=== PATIENT | male | born 1995 | race Caucasian/White ===

== ENCOUNTER 2022-06-18 15:54 | Emergency (ER) | payer OTHER ==
[2022-06-18 16:42] VITALS: BP 117/71; PULSE 82; RESP 20; TEMP 98; BMI 22.5
[2022-06-18] MEDS ORDERED: ACETAMINOPHEN 325 MG TABLET (FP) PO ONE (18:52)
[2022-06-18] MEDS ORDERED: ACETAMINOPHEN 325 MG TABLET (FP) ONE (19:44)
[2022-06-18] MEDS ORDERED: DIPHTH,PERTUSS(ACELL),TET 0.5 ML DISP.SYRIN IM ONE ×2 (19:59→21:01)
[2022-06-18] MEDS ORDERED: IBUPROFEN 400 MG TABLET (FP) PO ONE ×2 (22:08→22:23)
== END 2022-06-18 22:30 | disposition home or self-care (01) ==
LOC: JER 15:54
PROC: 3E0234Z Introduction of Serum, Toxoid and Vaccine into Muscle, Percutaneous Approach (ICD-10-PCS; principal; 2022-06-18)
DX: S06.0X1A Concussion with loss of consciousness of 30 minutes or less, initial encounter (principal); S00.81XA Abrasion of other part of head, initial encounter; V28.09XA Other motorcycle driver injured in noncollision transport accident in nontraffic accident, initial encounter
CPT/HCPCS: 70450-TC; 70486-TC; 72125-TC; 73110-TC-LT-FY; 73110-TC-RT-FY; 73560-TC-LT-FY; 73560-TC-RT-FY; 73590-TC-RT-FY; 82962; 90471; 90715; 99285-25